=== PATIENT | female | born 1980 | race African-American/Black ===

== ENCOUNTER 2017-07-05 15:50 | Emergency (ER) | payer OTHER ==
[2017-07-05 15:56] VITALS: BP 134/86; PULSE 88; TEMP 99.3; BMI 29.0
--- NOTE | 2017-07-05 15:56 | PDOC ---
Rapid Medical Evaluation Time Seen by Provider: 07/05/17 15:52 Medical Evaluation: Allergies Allergy/AdvReac Type Severity Reaction Status Date / Time shellfish derived Allergy Verified 05/28/15 11:01 Penicillins AdvReac Verified 05/28/15 11:01 07/05/17 15:53 Toothache and L swollen cheek. Started yesterday and got worse overnight. Pt does not have a dentist. 11/23 pain. Exam: Swollen L cheek. No airway obstruction. AAOx3. Ambulatory. LMP two days ago. Orders: Nothing Pt. to proceed to main ED for further evaluation.
[2017-07-05] MEDS ORDERED: KETOROLAC TROMETHAMINE 60 MG/2 ML VIAL IM ONE (16:09)
[2017-07-05] MEDS ORDERED: CLINDAMYCIN 600MG PREMIX IVPB 600 MG/50 ML BAG IVPB ONE (16:11)
[2017-07-05] MEDS ORDERED: PANTOPRAZOLE SODIUM 40 MG VIAL IVPUSH ONE (16:13)
[2017-07-05] MEDS ORDERED: KETOROLAC TROMETHAMINE 30 MG/1 ML VIAL IVPUSH ONE (16:13)
--- NOTE | 2017-07-05 16:20 | PDOC ---
History of Present Illness - General Chief Complaint: Pain Stated Complaint: TOOTHACHE, HEADACHE, SWOLLEN FACE Time Seen by Provider: 07/05/17 15:52 - History of Present Illness Initial Comments: 37-year-old female presents for evaluation of facial swelling and toothache 1 day. She has past medical history significant for asthma and ALLERGY to penicillin. 07/05/17 16:14 Past History - Past Medical History Allergies/Adverse Reactions: Allergies Allergy/AdvReac Type Severity Reaction Status Date / Time shellfish derived Allergy Verified 07/05/17 15:53 Penicillins AdvReac Verified 07/05/17 15:53 Home Medications: Ambulatory Orders Clindamycin [Cleocin -] 300 mg PO TID #21 capsule 07/05/17 Asthma: Yes COPD: No HTN: Yes - Suicide/Smoking/Psychosocial Hx Smoking History: Current every day smoker Have you smoked in the past 12 months: Yes Number of Cigarettes Smoked Daily: 6 Information on smoking cessation initiated: Yes 'Breaking Loose' booklet given: 07/05/17 Hx Alcohol Use: No Drug/Substance Use Hx: No Substance Use Type: None Review of Systems - Review of Systems Comments:: GENERAL/CONSTITUTIONAL: No fever or chills. No weakness. No weight change. HEAD, EYES, EARS, NOSE AND THROAT: No change in vision. No ear pain or discharge. No sore throat. Left-sided facial swelling and toothache. CARDIOVASCULAR: No chest pain or shortness of breath. RESPIRATORY: No cough, wheezing, or hemoptysis. GASTROINTESTINAL: No nausea, vomiting, diarrhea or constipation. No rectal bleeding. GENITOURINARY: No dysuria, frequency, or change in urination. MUSCULOSKELETAL: No joint or muscle swelling or pain. No neck or back pain. SKIN AND BREASTS: No rash or easy bruising. NEUROLOGIC: No headache, vertigo, loss of consciousness, or loss of sensation. PSYCHIATRIC: No depression or anxiety. ENDOCRINE: No increased thirst. No abnormal weight change. HEMATOLOGIC/LYMPHATIC: No anemia, easy bleeding, or history of blood clots. ALLERGIC/IMMUNOLOGIC: No hives or skin allergy. No latex allergy. 07/05/17 16:15 *Physical Exam - Vital Signs Last Vital Signs Temp Pulse Resp BP Pulse Ox 99.3 F 88 18 134/86 100 07/05/17 15:54 07/05/17 15:54 07/05/17 15:54 07/05/17 15:54 07/05/17 15:54 - Physical Exam Comments: GENERAL: The patient is awake, alert, and fully oriented, in no acute distress. HEAD: Normal with no signs of trauma. EYES: Pupils equal, round and reactive to light, extraocular movements intact, sclera anicteric, conjunctiva clear. ENT: Ears normal, nares patent, oropharynx clear without exudates. Moist mucous membranes. There is left-sided facial swelling poor dentition. There is no palpable abscess or fluctuance. NECK: Normal range of motion, supple without lymphadenopathy, JVD, or masses. LUNGS: Breath sounds equal, clear to auscultation bilaterally. No wheezes, and no crackles. HEART: Regular rate and rhythm, normal S1 and S2 without murmur, rub or gallop. ABDOMEN: Soft, nontender, normoactive bowel sounds. No guarding, no rebound. No masses. EXTREMITIES: Normal range of motion, no edema. No clubbing or cyanosis. No cords, erythema, or tenderness. NEUROLOGICAL: Cranial nerves II through XII grossly intact. Normal speech, normal gait. PSYCH: Normal mood, normal affect. SKIN: Warm, Dry, normal turgor, no rashes or lesions noted. 07/05/17 16:16 Moderate Sedation - Procedure Monitoring Vital Signs: Vital Signs Temp Pulse Resp BP Pulse Ox 99.3 F 88 18 134/86 100 07/05/17 15:54 07/05/17 15:54 07/05/17 15:54 07/05/17 15:54 07/05/17 15:54 Medical Decision Making - Medical Decision Making 37-year-old female with dental abscess. There is nothing fluctuant on her examination which can be I&D in the emergency room. I have gotten her an appointment at dental care and she will go there after her dose of IV antibiotics and Toradol. I've also given her a dose of tonics IV for GI prophylaxis because of the Toradol. 07/05/17 16:18 *DC/Admit/Observation/Transfer Diagnosis at time of Disposition: Dental abscess - Discharge Dispostion Disposition: HOME Condition at time of disposition: Stable Decision to Admit order: No - Referrals - Patient Instructions Printed Discharge Instructions: Tooth Abscess Additional Instructions: I have gotten you an appointment with dental urgent care. Go to dental Urgentcare directly after discharge from the emergency room. In the meantime you 've already gotten a dose of IV antibiotics pain medication and medication to protect her stomach. Return to the emergency room if symptoms worsen or go unresolved. In the meantime go directly to dental Urgentcare after discharged today from the emergency room. I provide you with the address it is [address] [place] [address]. and [place] they are expecting you now your person there is Jessika. - Post Discharge Activity
== END 2017-07-05 17:52 | disposition home or self-care (01) ==
LOC: JERFT 15:50
PROC: 3E03329 Introduction of Other Anti-infective into Peripheral Vein, Percutaneous Approach (ICD-10-PCS; principal; 2017-07-05)
PROC: 3E0333Z Introduction of Anti-inflammatory into Peripheral Vein, Percutaneous Approach (ICD-10-PCS; 2017-07-05)
PROC: 3E033GC Introduction of Other Therapeutic Substance into Peripheral Vein, Percutaneous Approach (ICD-10-PCS; 2017-07-05)
DX: K04.7 Periapical abscess without sinus (principal); I10 Essential (primary) hypertension; J45.909 Unspecified asthma, uncomplicated; F17.210 Nicotine dependence, cigarettes, uncomplicated
CPT/HCPCS: 96365; 96375; 99281-25

== ENCOUNTER 2017-07-07 16:38 | Inpatient (IN) | payer OTHER ==
[2017-07-07 17:12] VITALS: BMI 29.3
[2017-07-07] MEDS ORDERED: CLINDAMYCIN 900 MG PREMIX IVPB 900 MG/50 ML BAG IVPB ONE (17:23)
--- NOTE | 2017-07-07 17:31 | PDOC ---
Attending Attestation - Resident Resident Name: Mau Guerrero - ED Attending Attestation I have performed the following: I have examined & evaluated the patient, The case was reviewed & discussed with the resident, I agree w/resident's findings & plan, Exceptions are as noted - HPI HPI: 07/07/17 17:17 37y F hx of asthma presents with complaint of L sided facial pain/tooth ache x 3 daysthat started while she was eating chicken and thinks she bit into a bone, pain started immedaiately and has gotten worse. pt endorses subjective fever and significant pain to the region. she went to the oral surgeon but left after getting a shot due to her pain. on exam pt has cavity and tenderness to touch on tooth #15, mild tendeness to R maxilla airway patent uvula midlien no voice changes ddx includes possible dental abcess will obtain blood work ct neck/maxilla 07/07/17 19:17 signed out to evening team to fu with results and ct & disposition the pt - Physicial Exam PE: 07/08/17 10:25 see above - Medical Decision Making 07/08/17 10:25 see above
--- NOTE | 2017-07-07 17:57 | PDOC ---
History of Present Illness - General Chief Complaint: Toothache Stated Complaint: ORAL INFECTION Time Seen by Provider: 07/07/17 17:02 History Source: Patient Exam Limitations: No Limitations - History of Present Illness Initial Comments: 07/07/17 17:56 Patient is a 37F with history of asthma here today complaining of left sided facial pain and swelling for the past three days. She states the pain started after eating a piece of food that caused irritation to an upper molar tooth. Endorses associated fevers, chills, nausea, and drooling. Denies shortness of breath and difficulty breathing. Denies chest pain. Patient was seen at oral surgeon's office where she left because the "dentist was hurting me." EMS gave patient 5 morphine and 4 zofran IM in the field. LMP two days ago. Past History - Past Medical History Allergies/Adverse Reactions: Allergies Allergy/AdvReac Type Severity Reaction Status Date / Time shellfish derived Allergy Verified 07/05/17 15:53 Penicillins AdvReac Verified 07/05/17 15:53 Home Medications: Ambulatory Orders Clindamycin [Cleocin -] 300 mg PO TID #21 capsule 07/05/17 Asthma: Yes COPD: No HTN: Yes - Suicide/Smoking/Psychosocial Hx Smoking History: Current every day smoker Have you smoked in the past 12 months: Yes Number of Cigarettes Smoked Daily: 10 Information on smoking cessation initiated: No 'Breaking Loose' booklet given: 07/05/17 Hx Alcohol Use: No Drug/Substance Use Hx: No Substance Use Type: None Review of Systems - Review of Systems Able to Perform ROS?: Yes Comments:: 07/07/17 18:01 GENERAL/CONSTITUTIONAL: Positive for fever and chills. No weakness. HEAD, EYES, EARS, NOSE AND THROAT: No change in vision. No sore throat. CARDIOVASCULAR: No chest pain or shortness of breath RESPIRATORY: No cough, wheezing, or hemoptysis. GASTROINTESTINAL: No nausea, vomiting, diarrhea or constipation. GENITOURINARY: No dysuria, frequency, or change in urination. MUSCULOSKELETAL: No joint or muscle swelling or pain. No neck or back pain. SKIN: No rash NEUROLOGIC: Positive for headache. Negative for vertigo, loss of consciousness, or change in strength/sensation. HEMATOLOGIC/LYMPHATIC: No anemia, easy bleeding, or history of blood clots. ALLERGIC/IMMUNOLOGIC: No hives or skin allergy. *Physical Exam - Vital Signs Last Vital Signs Temp Pulse Resp BP Pulse Ox 99.8 F H 92 H 22 123/63 100 07/07/17 17:09 07/07/17 17:09 07/07/17 17:09 07/07/17 17:09 07/07/17 17:09 - Physical Exam Comments: 07/07/17 18:02 GENERAL: Awake, alert, and fully oriented, tearful, anxious HEAD: No signs of trauma, normocephalic, atraumatic EYES: PERRLA, EOMI, sclera anicteric, conjunctiva clear ENT: Midline uvula, tender left sided side of face with surrounding erythema and swelling NECK: Normal ROM, supple, no lymphadenopathy, JVD, or masses LUNGS: No distress, speaks full sentences, clear to auscultation bilaterally HEART: Regular rate and rhythm, normal S1 and S2, no murmurs, rubs or gallops, peripheral pulses normal and equal bilaterally. ABDOMEN: Soft, nontender, normoactive bowel sounds. No guarding, no rebound. No masses EXTREMITIES: Normal inspection, Normal range of motion, no edema. No clubbing or cyanosis. NEUROLOGICAL: Cranial nerves II through XII grossly intact. Normal speech, normal gait, no focal sensorimotor deficits SKIN: Warm, Dry, normal turgor, no rashes or lesions noted. ED Treatment Course - RADIOLOGY Radiology Studies Ordered: Category Date Time Status SOFT TISSUE NECK CT WITH CONTR [CT] Stat CT Scan 07/07/17 17:15 Ordered Medical Decision Making - Medical Decision Making 07/07/17 18:03 Patient is 37F here today with left sided facial pain. Vital signs show borderline fever, otherwise normal. Exam shows impressive swelling and tenderness along maxilla. Concerned for possible abscess or deep space neck infection, do not think epiglottitis or russell's angina is likely given patient' s lack of voice changes and neck swelling. Will evaluate with cbc, cmp, blood cultures, ct scan. Will treat with tylenol and clindamycin for possible infection. 07/07/17 18:[address] Tse. *DC/Admit/Observation/Transfer Diagnosis at time of Disposition: Oral infection - Discharge Dispostion Condition at time of disposition: Stable - Referrals Referrals: Nahomi Luke MD [Primary Care Provider] - - Patient Instructions - Post Discharge Activity
[2017-07-07] MEDS ORDERED: ACETAMINOPHEN INJECTION 100 ML IVPB ONE (18:00)
[2017-07-07] MEDS ORDERED: CLINDAMYCIN 600MG PREMIX IVPB 600 MG/50 ML BAG IVPB ONE (18:00)
[2017-07-07] MEDS ORDERED: ACETAMINOPHEN 1000 MG/100 ML VIAL (NON FORMULARY) IVPB ONE (18:31)
[2017-07-07] MEDS ORDERED: CLINDAMYCIN PHOSPHATE 600 MG/4 ML VIAL ONE (18:32)
--- NOTE | 2017-07-07 19:07 | PDOC ---
*Physical Exam - Vital Signs Last Vital Signs Temp Pulse Resp BP Pulse Ox 99.8 F H 92 H 22 123/63 100 07/07/17 17:09 07/07/17 17:09 07/07/17 17:09 07/07/17 17:09 07/07/17 17:09 ED Treatment Course - LABORATORY CBC & Chemistry Diagram: 07/07/17 18:10 07/07/17 18:10 - Medications Given in the ED: ED Medications Discontinued Medications Generic Name Dose Route Start Last Admin Trade Name Adelia PRN Reason Stop Dose Admin Acetaminophen 1,000 mg 07/07/17 18:31 07/07/17 18:25 Ofirmev Injection - IVPB 07/07/17 18:32 1,000 mg ONCE ONE Administration Clindamycin Phosphate 900 mg in 50 mls @ 100 mls/hr 07/07/17 17:23 07/07/17 18:25 Cleocin 900 Mg Premix Ivpb - IVPB 07/07/17 17:52 100 mls/hr ONCE ONE Administration Protocol Medical Decision Making - Medical Decision Making 37 yo woman with hx of asthma presenting with L sided facial swelling secondary to suspected tooth abscess. Received labs, IV tylenol for pain control with pending facial CT to rule-out deep tissue abscess. If positive, will admit with ENT consulted and IV abx. If negative, will discharge on PO clindamycin. Sign out from Dr. Mau Guerrero 07/07/17 19:05 CT scan suggestive of L maxillary soft tissue cellulitis. WBC 16k. Pt with improvement in L facial swelling with IV medrol and cold pack. Received dose IV clinda 900mg at 5PM. Pt signed-out to Nicolasa Keane. Will admit to M/S obs. 07/08/17 02:22 *DC/Admit/Observation/Transfer Diagnosis at time of Disposition: Oral infection Cellulitis Qualifiers: Site of cellulitis: face Qualified Code(s): L03.211 - Cellulitis of face - Discharge Dispostion Condition at time of disposition: Stable Decision to Admit order: Yes - Referrals Referrals: Nahomi Luke MD [Primary Care Provider] - - Patient Instructions - Post Discharge Activity
[2017-07-07 19:38] LABS: HEMATOCRIT 35.3 % (32.4-45.2); HEMOGLOBIN 11.6 GM/dL (10.7-15.3); MCH 27.8 pg (25.7-33.7); MCHC 32.9 g/dl (32.0-36.0); MEAN CELL VOLUME 84.8 fl (80-96); MEAN PLT VOLUME 8.3 fl (7.5-11.1); PLATELET COUNT 275 K/MM3 (134-434); RBC 4.16 M/mm3 (3.60-5.2); RDW 14.4 % (11.6-15.6); WHITE BLOOD COUNT 16.2 K/mm3 (4.0-10.0)
[2017-07-07] MEDS ORDERED: methylPREDNISolone NA SUCC 125 MG/2 ML VIAL IVPB ONE (20:07)
[2017-07-07 20:09] LABS: INR 1.27 (0.82-1.09); PROTHROMBIN TIME (PATIENT) 14.3 SEC (9.7-13.0)
[2017-07-07] MEDS ORDERED: methylPREDNISolone NA SUCC 125 MG/2 ML VIAL ONE (20:14)
[2017-07-07 20:15] LABS: ALBUMIN 3.7 g/dl (3.4-5.0); ANION GAP 11 (8-16); BILIRUBIN,TOTAL 0.6 mg/dL (0.2-1.0); BLOOD UREA NITROGEN 7 mg/dL (7-18); CALCIUM 8.8 mg/dL (8.5-10.1); CHLORIDE 107 mmol/L (98-107); CO2 23 mmol/L (21-32); CREATININE 0.8 mg/dL (0.55-1.02); GLUCOSE,RANDOM 80 mg/dL (74-106); SGOT/AST 13 U/L (15-37); SGPT/ALT 9 U/L (12-78); SODIUM 141 mmol/L (136-145); TOT PROT 7.7 g/dl (6.4-8.2)
[2017-07-07 20:16] LABS: ALK PHOS 76 U/L (45-117)
[2017-07-07] MEDS ORDERED: morphine CARPU-JECT 2 MG/1 ML DISP.SYRIN IVPUSH ONE (20:22)
[2017-07-07] MEDS ORDERED: ONDANSETRON 4 MG/2 ML VIAL IVPUSH STA (20:22)
[2017-07-07] MEDS ORDERED: MORPHINE SULFATE 10 MG/1 ML *VIAL ONE (20:25)
[2017-07-07] MEDS ORDERED: ONDANSETRON 4 MG/2 ML VIAL ONE (20:26)
[2017-07-07 20:31] LABS: POTASSIUM 2.8 mmol/L (3.5-5.1)
[2017-07-07] MEDS ORDERED: POTASSIUM CHLORIDE ORAL LIQUID 20 MEQ/15 ML PO ONE (20:32)
[2017-07-07] MEDS ORDERED: POTASSIUM CHLORIDE ORAL LIQUID 20 MEQ/15 ML ONE (22:05)
[2017-07-07] MEDS ORDERED: KCL 10 MEQ IVPB 10 MEQ/100 ML INFUS.BAG IVPB ONE ×2 (22:06→23:22)
[2017-07-07] MEDS: KCL 10 MEQ IVPB 10 MEQ/100 ML INFUS.BAG IVPB SCH ×2 (22:23→22:45)
[2017-07-08] MEDS: KCL 10 MEQ IVPB 10 MEQ/100 ML INFUS.BAG IVPB SCH (00:59)
[2017-07-08] MEDS ORDERED: MECLIZINE HCL 25 MG TABLET (FP) PO ONE (01:51)
[2017-07-08] MEDS ORDERED: MECLIZINE HCL 25 MG TABLET (FP) ONE (02:34)
[2017-07-08] MEDS ORDERED: CLINDAMYCIN 600MG PREMIX IVPB 600 MG/50 ML BAG IVPB ONE ×2 (02:50→04:02)
[2017-07-08] MEDS ORDERED: ALBUTEROL SO4 0.083% IH SOL 2.5 MG/3 ML VIAL.NEB. NEB PRN (03:29)
[2017-07-08] MEDS ORDERED: ACETAMINOPHEN 325 MG TABLET (FP) PO PRN (03:29)
--- NOTE | 2017-07-08 04:51 | HP ---
CHIEF COMPLAINT: facial swelling PCP: Dr. Nahomi Luke HISTORY OF PRESENT ILLNESS: 37yo woman with PMH of asthma (well controlled) who presents to ED with L sided tooth and facial pain that started 3 days ago after biting into a piece of chicken bone. Denies any prior tooth/oral symptoms prior to that event. No puncture or laceration of oral mucosa noted. No facial insect bites. She states that since Tuesday night she has had progressing facial swelling and pain. She went to oral surgeon earlier today, but left after receiving Novocaine injection due to pain. Endorses subjective fever and chills. Denies any difficulty or pain with swallowing or talking. Had some pain with medial L eye movement, but denies any changes in vision. Denies any voice changes. Currently states that swelling and pain has improved. ED course was notable for: (1) VS: T 98.8, HR 92, BP 123/63, RR 22, pSaO2 100% on RA (2) CT neck/maxilla: facial cellutitis, no abscess detected (3) Received 1x SoluMedrol 125mg IV and Clinda 900mg IV, Clinda 600mg IV Recent Travel: none PAST MEDICAL HISTORY: asthma HTN PAST SURGICAL HISTORY: no prior oral surgeries Social History: Smoking: ~10 cig/day, 10pack year history Alcohol: none Drugs: none Family History: non-contributory Allergies shellfish derived Allergy (Verified 07/05/17 15:53) -> anaphylaxis Penicillins Adverse Reaction (Verified 07/05/17 15:53) --> hives HOME MEDICATIONS: Home Medications Medication Instructions Recorded Clindamycin [Cleocin -] 300 mg PO TID #21 capsule 07/05/17 REVIEW OF SYSTEMS CONSTITUTIONAL: +fever, chills Absent: diaphoresis, generalized weakness, malaise, loss of appetite, weight change HEENT: Absent: rhinorrhea, nasal congestion, throat pain, throat swelling, difficulty swallowing, mouth swelling, ear pain, eye pain, visual changes CARDIOVASCULAR: Absent: chest pain, syncope, palpitations, irregular heart rate, lightheadedness , peripheral edema RESPIRATORY: Absent: cough, shortness of breath, dyspnea with exertion, orthopnea, wheezing, stridor, hemoptysis GASTROINTESTINAL: Absent: abdominal pain, abdominal distension, nausea, vomiting, diarrhea, constipation, melena, hematochezia GENITOURINARY: Absent: dysuria, frequency, urgency, hesitancy, hematuria, flank pain, genital pain MUSCULOSKELETAL: Absent: myalgia, arthralgia, joint swelling, back pain, neck pain SKIN: Absent: rash, itching, pallor HEMATOLOGIC/IMMUNOLOGIC: Absent: easy bleeding, easy bruising, lymphadenopathy, frequent infections ENDOCRINE: Absent: unexplained weight gain, unexplained weight loss, heat intolerance, cold intolerance NEUROLOGIC: Absent: headache, focal weakness or paresthesias, dizziness, unsteady gait, seizure, mental status changes, bladder or bowel incontinence PSYCHIATRIC: Absent: anxiety, depression, suicidal or homicidal ideation, hallucinations. PHYSICAL EXAMINATION Vital Signs - 24 hr 07/07/17 17:09 Temperature 99.8 F H Pulse Rate 92 H Respiratory 22 Rate Blood Pressure 123/63 O2 Sat by Pulse 100 Oximetry (%) GENERAL: aaox3, HEENT: upper L facial swelling with partial occlusion of L eye without erythema , + ttp L 2nd molar, sclera anicteric, conjunctiva clear, uvula midline, no pharyngeal erythema, mmm NECK: supple, +L submandibular LAD LUNGS: CTAB HEART: rrr, normal s1/s2 ABDOMEN: soft, protuberant, NTND UPPER EXTREMITIES: 2+ radial pulses, wwp, no edema LOWER EXTREMITIES: 2+ DP pulses, wwp, edema NEUROLOGICAL: Cranial nerves II-XII intact. Normal speech. PSYCHIATRIC: Cooperative. Good eye contact. Appropriate mood and affect. SKIN: no rashes, bites or lesions noted on face CBC, BMP 07/07/17 18:10 07/07/17 18:10 CT Face w/o contrast (Preliminary Read): Moderate swelling L mandibular and maxillary soft tissue, possibly cellulitis. Soft tissue thickening particularly over L anterior maxillary wall extending to L nasal bone and along L lateral maxillary sinus wall, which could represent phlegmon. EKG: NSR, rate 67, normal axis and intervals, no acute ischemic ST/T wave changes, QTc 450 ASSESSMENT/PLAN: 37yo woman with PMH of asthma who presents with L upper facial swelling and L 2nd molar tooth pain x 3days and found to have L facial cellulitis of likely odontogenic etiology. #L facial cellulitis, CT Face non-contrast: possible phlegmon, but no discrete abscess noted -continue with Clindamycin 600mg IVP Q8H -f/u blood cultures -f/u final CT reading -Trend WBC/fever curve -Tylenol PRN for pain or fever -dental referral on discharge #hypokalemia, 2.8 -s/p repletion KCl 30mEq + KCl 40 mEq PO -Repeat CMP in AM -Check Mg #asthma, well controlled, no exacerbation -c/w home Ventolin PRN #FEN PO intake hypoK repleted Regular diet #PPX DVT - early ambulation, SCDs #DISPO: Obs m/s FULL code d/w Dr. Moses Bellamy MD PGY1 - Internal Medicine, Night Maintenance Analyst Visit type - Emergency Visit Emergency Visit: Yes ED Registration Date: 07/08/17 Care time: The patient presented to the Emergency Department on the above date and was hospitalized for further evaluation of their emergent condition. - New Patient This patient is new to me today: Yes Date on this admission: 07/08/17 - Critical Care Critical Care patient: No Hospitalist Screening - Colonoscopy Questionnaire Colonoscopy Questionnaire: Colonoscopy Questionnaire - Patient: 50 - 75 years old and never had a screening colonoscopy: No History of colon or rectal polyps, or CA: Unknown History of IBD, Crohn's disease or UC: Unknown History of abdominal radiation therapy as a child: Unknown - Relative: 1 with colon or rectal CA, or polyps at age 60 or younger: Unknown Colon or rectal CA diagnosed at age 45 or younger: Unknown Multiple relatives with colon or rectal CA: Unknown - Outcome: Screening Result: Negative Screen
--- NOTE | 2017-07-08 06:13 | PN ---
Teaching Attending Note Name of Resident: Amanda Bellamy ATTENDING PHYSICIAN STATEMENT I saw and evaluated the patient. Chart, data, imaging reviewed. I reviewed the resident's note and discussed the case with the resident. I agree with the resident's findings and plan as documented. SUBJECTIVE: 37yo woman with PMH of asthma (well controlled) who presents to ED with L sided tooth and facial pain that started on tuesday. Patient thought that this started after eating some chicken. Denied any trauma to her face. No problems with speech or swallowing. Denied any fevers or chills. OBJECTIVE: Last Vital Signs Temp Pulse Resp BP Pulse Ox 98.3 F 68 18 108/62 99 07/08/17 05:26 07/08/17 05:26 07/08/17 05:26 07/08/17 05:07/08/17 05:26 general- nad, aaox3 heent - left facial swelling and left sided maxillary and frontal sinus tenderness, no scleral injection neck -supple cv-s1+s2+rrr chest - cta b/l abdomen- soft, nt, bs+ ext -no pedal edema Abnormal Lab Results 07/07/17 07/07/17 07/07/17 18:10 18:10 18:10 WBC 16.2 H D PT with INR 14.30 H INR 1.27 H Potassium 2.8 L* AST 13 L [address] of face C-, Moderate swelling L mandibular and maxillary soft tissue, possibly cellulitis. Soft tissue thickening particularly over L anterior maxillary wall extending to L nasal bone and along L lateral maxillary sinus wall, which could represent phlegmon. Assessment and Plan #37yo woman with left facial cellulitis with left maxillary and frontal sinusitis. Do not suspect allergic reaction as swelling is only unilateral. Partial improvement in swelling after steroids. Penicillin allergy+ -admit to med/surg -clindamycin 600mg IV q8hrs -blood cultures x2 -dental/OMS evaluation -no steroids at this time #Hypokalemia -uncertain etiology -replace K -EKG -repeat BMP DVT ppx -heparin sc
[2017-07-08 08:20] LABS: HEMATOCRIT 33.3 % (32.4-45.2); LYMPH % 2.7 % (8-40); MCH 27.9 pg (25.7-33.7); MCHC 32.9 g/dl (32.0-36.0); MEAN CELL VOLUME 84.8 fl (80-96); MEAN PLT VOLUME 8.2 fl (7.5-11.1); MONO % 0.4 % (3.8-10.2); NEUT % 96.9 % (42.8-82.8); PLATELET COUNT 239 K/MM3 (134-434); RBC 3.93 M/mm3 (3.60-5.2); RDW 14.4 % (11.6-15.6); WHITE BLOOD COUNT 22.6 K/mm3 (4.0-10.0)
[2017-07-08 08:30] LABS: CHLORIDE 109 mmol/L (98-107); POTASSIUM 3.8 mmol/L (3.5-5.1); SODIUM 140 mmol/L (136-145)
[2017-07-08 08:36] VITALS: PULSE 73
[2017-07-08 08:57] LABS: ALBUMIN 3.3 g/dl (3.4-5.0); ALK PHOS 68 U/L (45-117); ANION GAP 8 (8-16); BILIRUBIN,TOTAL 0.4 mg/dL (0.2-1.0); BLOOD UREA NITROGEN 8 mg/dL (7-18); CALCIUM 8.3 mg/dL (8.5-10.1); CO2 23 mmol/L (21-32); CREATININE 0.8 mg/dL (0.55-1.02); GLUCOSE,RANDOM 113 mg/dL (74-106); MAGNESIUM 2.3 mg/dL (1.8-2.4); PHOSPHOROUS 2.3 mg/dL (2.5-4.9); SGOT/AST 11 U/L (15-37); SGPT/ALT 11 U/L (12-78); TOT PROT 7.3 g/dl (6.4-8.2)
[2017-07-08 09:12] LABS: PLATELET ESTIMATE NORMAL
[2017-07-08] MEDS: CLINDAMYCIN 600MG PREMIX IVPB 600 MG/50 ML BAG IVPB SCH ×2 (09:39→17:33)
[2017-07-08] MEDS ORDERED: methylPREDNISolone NA SUCC 40 MG/1 ML VIAL IVPUSH ONE (10:00)
[2017-07-08] MEDS ORDERED: PNEUMOC 13-VAL CONJ-DIP CRM/PF 0.5 ML DISP.SYRIN IM ONE (10:00)
--- NOTE | 2017-07-08 10:42 | EKG ---
Test Reason : Blood Pressure : / mmHG Vent. Rate : 067 BPM Atrial Rate : 067 BPM P-R Int : 150 ms QRS Dur : 086 ms QT Int : 426 ms P-R-T Axes : 061 075 061 degrees QTc Int : 450 ms NORMAL SINUS RHYTHM NORMAL ECG WHEN COMPARED WITH ECG OF 27-SEP-2014 11:40, NO SIGNIFICANT CHANGE WAS FOUND Confirmed by JOSE BENJAMIN MD ([id number]) on 07/08/2017 10:41:54 AM Referred By: Confirmed By:JOSE BENJAMIN MD
--- NOTE | 2017-07-08 12:24 | CON.ID ---
Consult Consult Specialty:: infectious diseases Referred by:: Reason for Consultation:: left facial cellulitits - History of Present Illness Chief Complaint: left sided facial swelling History of Present Illness: 37yo woman with PMH of asthma admitted with L sided tooth and facial pain that started 3 days ago after biting into a piece of chicken bone. Denies any prior tooth/oral symptoms prior to that event. She mentions that after that the facial swelling was a lot and she was in a lot of pain according to her this pain and swelling that she has now is not even half of what she had. patient also had fever and chills associated with the episode. . She went to oral surgeon , but left after receiving Novocaine injection and according to her he did not do enough to control her pain . Denies any difficulty or pain with swallowing or talking. Had some pain with medial L eye movement, now she does not have any issues with the eye and says that the swelling ahs decreased currently the pain is much better - History Source History Provided By: Patient Limitations to Obtaining History: No Limitations - Alcohol/Substance Use Hx Alcohol Use: No - Smoking History Smoking history: Current every day smoker Have you smoked in the past 12 months: Yes Aproximately how many cigarettes per day: 10 Home Medications - Allergies Allergies/Adverse Reactions: Allergies Allergy/AdvReac Type Severity Reaction Status Date / Time shellfish derived Allergy Verified 07/05/17 15:53 Penicillins AdvReac Verified 07/05/17 15:53 - Home Medications Home Medications: Ambulatory Orders Clindamycin [Cleocin -] 300 mg PO TID #21 capsule 07/05/17 Review of Systems - Review of Systems Constitutional: reports: Chills, Fever Eyes: reports: No Symptoms HENT: reports: Ocular Prosthesis, Other (swelling left side of the face) Cardiovascular: reports: No Symptoms Respiratory: reports: No Symptoms Gastrointestinal: reports: No Symptoms Genitourinary: reports: No Symptoms Musculoskeletal: reports: No Symptoms Integumentary: reports: No Symptoms Neurological: reports: No Symptoms Endocrine: reports: No Symptoms Hematology/Lymphatic: reports: No Symptoms Psychiatric: reports: No Symptoms Physical Exam Vital Signs: Vital Signs Temperature 98.7 F 07/08/17 09:00 Pulse Rate 73 07/08/17 09:00 Respiratory Rate 20 07/08/17 11:23 Blood Pressure 134/78 07/08/17 09:00 O2 Sat by Pulse Oximetry (%) 99 07/08/17 11:23 Constitutional: Yes: Well Nourished, Calm, Mild Distress Eyes: Yes: Conjunctiva Clear HENT: Yes: Atraumatic, Other (swelling left side of the face and cellulittis left side of the face) Neck: Yes: Supple, Trachea Midline Cardiovascular: Yes: Regular Rate and Rhythm Respiratory: Yes: Regular, CTA Bilaterally Gastrointestinal: Yes: Normal Bowel Sounds, Soft Musculoskeletal: Yes: WNL Extremities: Yes: WNL Neurological: Yes: Alert, Oriented Psychiatric: Yes: Alert, Oriented Labs: CBC, BMP 07/08/17 07:45 07/08/17 07:45 Imaging - Results Cat Scan: Report Reviewed, Image Reviewed Assessment/Plan patient coming with left sided facial cellulittis and left orbit swelling was started on clind inspite of which the wbc has increased patient clinically looking stable looking at the ct imaging there is some worry if there is a collection her swelling has improved patient infection probably coming from the tooth cellulitis of left side of face swelling of left face and orbit probable tooth abscess fever leukocytosis plan continue clinda i have added ertapenam as patient has some allergy to pcn monitor swelling might have to repeat a ct scan in couple of days if the swelling does not resolve or the wbc does not trend down watch wbc very carefully
[2017-07-08] MEDS ORDERED: ERTAPENEM SODIUM 1 GM in SODIUM CHLORIDE 100 ML IVPB SCH (13:00)
[2017-07-08] MEDS ORDERED: ERTAPENEM SODIUM 1 GM in SODIUM CHLORIDE 50 ML IVPB SCH (13:00)
[2017-07-08 13:43] VITALS: BP 117/59; TEMP 98.6
--- NOTE | 2017-07-08 15:24 | PN ---
Teaching Attending Note Name of Resident: Shahab Fu ATTENDING PHYSICIAN STATEMENT I saw and evaluated the patient. I reviewed the resident's note and discussed the case with the resident. I agree with the resident's findings and plan as documented with exceptions below. SUBJECTIVE: Patient seen and examined, still with left tooth pain with facial swelling and some pain with eye movements and photophobia in left eye. No new worsening, fevers, chills or trouble breathing. OBJECTIVE: Vital Signs Period Temp Pulse Resp BP Sys/Brunson Pulse Ox Last 24 Hr 98.3 F-99.8 F 68-92 18-22 108-134/59-78 99-100 Intake & Output 07/05/17 07/06/17 07/07/17 07/08/17 23:59 23:59 23:59 23:59 Weight 182 lb General: sitting in bed, no acute distress HEENT: left facial and tanisha-orbital swelling, PERRL, photophobia in left eye, pain with medial eye movements but no limitation in ROM, tenderness left maxially and upper mouth in the region of molars Chest: CTAB, no rales or wheezing, no stridor Active Medications Generic Name Dose Route Start Last Admin Trade Name Freq PRN Reason Stop Dose Admin Acetaminophen 650 mg 07/08/17 03:29 Tylenol - PO Q4H PRN PAIN LEVEL 1-5 Albuterol Sulfate 1 amp 07/08/17 03:29 Ventolin 0.083% Nebulizer Soln - NEB Q6H PRN SHORT OF BREATH/WHEEZING Clindamycin Phosphate 600 mg in 50 mls @ 100 mls/hr 07/08/17 10:00 07/08/17 09:39 Cleocin 600 Mg Premix Ivpb - IVPB 100 mls/hr Q8H-IV SHERI Administration Protocol Ertapenem 1 gm/ Sodium 100 mls @ 100 mls/hr 07/08/17 13:00 Chloride IVPB DAILY SHERI Protocol Laboratory Results - last 24 hr 07/07/17 07/07/17 07/07/17 18:10 18:10 18:10 WBC 16.2 H D RBC 4.16 Hgb 11.6 Hct 35.3 MCV 84.8 MCH 27.8 MCHC 32.9 RDW 14.4 Plt Count 275 D MPV 8.3 D Neutrophils % Neutrophils % (Manual) Band Neutrophils % Lymphocytes % Lymphocytes % (Manual) Monocytes % Monocytes % (Manual) Eosinophils % Eosinophils % (Manual) Basophils % Basophils % (Manual) Myelocytes % (Man) Promyelocytes % (Man) Blast Cells % (Manual) Nucleated RBC % Metamyelocytes Platelet Estimate PT with INR INR Sodium 141 Potassium 2.8 L* Chloride 107 Carbon Dioxide 23 Anion Gap 11 BUN 7 Creatinine 0.8 Creat Clearance w eGFR > 60 Random Glucose 80 Calcium 8.8 Phosphorus Magnesium Total Bilirubin 0.6 D AST 13 L ALT 9 L Alkaline Phosphatase 76 Total Protein 7.7 Albumin 3.7 Serum , Qual Negative 07/07/17 07/08/17 07/08/17 18:10 07:45 07:45 WBC 22.6 H D RBC 3.93 Hgb 11.0 Hct 33.3 MCV 84.8 MCH 27.9 MCHC 32.9 RDW 14.4 Plt Count 239 MPV 8.2 Neutrophils % 96.9 H D Neutrophils % (Manual) 93.9 H Band Neutrophils % 3.1 Lymphocytes % 2.7 L D Lymphocytes % (Manual) 3.0 L Monocytes % 0.4 L D Monocytes % (Manual) 0 L Eosinophils % 0.0 D Eosinophils % (Manual) 0.0 Basophils % 0.0 Basophils % (Manual) 0.0 Myelocytes % (Man) 0 Promyelocytes % (Man) 0 Blast Cells % (Manual) 0 Nucleated RBC % 0 Metamyelocytes 0 Platelet Estimate Normal PT with INR 14.30 H INR 1.27 H Sodium Cancelled Potassium Cancelled Chloride Cancelled Carbon Dioxide Cancelled Anion Gap Cancelled BUN Cancelled Creatinine Cancelled Creat Clearance w eGFR Random Glucose Cancelled Calcium Cancelled Phosphorus Cancelled Magnesium Cancelled Total Bilirubin AST ALT Alkaline Phosphatase Total Protein Albumin Serum , Qual 07/08/17 07:45 WBC RBC Hgb Hct MCV MCH MCHC RDW Plt Count MPV Neutrophils % Neutrophils % (Manual) Band Neutrophils % Lymphocytes % Lymphocytes % (Manual) Monocytes % Monocytes % (Manual) Eosinophils % Eosinophils % (Manual) Basophils % Basophils % (Manual) Myelocytes % (Man) Promyelocytes % (Man) Blast Cells % (Manual) Nucleated RBC % Metamyelocytes Platelet Estimate PT with INR INR Sodium 140 Potassium 3.8 Chloride 109 H Carbon Dioxide 23 Anion Gap 8 BUN 8 Creatinine 0.8 Creat Clearance w eGFR > 60 Random Glucose 113 H Calcium 8.3 L Phosphorus 2.3 L Magnesium 2.3 Total Bilirubin 0.4 D AST 11 L ALT 11 L Alkaline Phosphatase 68 Total Protein 7.3 Albumin 3.3 L Serum , Qual CT face results noted CT orbit results noted. ASSESSMENT AND PLAN: 37 yof with likely left dental abscess with facial/preseptal cellulitis. -Sepsis secondary to likely dental abscess with facial/preseptal cellulitis Plan: Clindamycin. ID consulted noted. Add ertapenem, given PCN allergy and worsening WBC ?Leucocoytosis with component of steroid induced margination. CT orbit results noted. Opthalmology consulted, recommend treatment for primary infection, will continue to monitor and follow recs. [id number] as need tooth extraction with likely drainage of abscess. Plan discussed with patient in detail, all questions answered. D/c to [facility] when bed available.
--- NOTE | 2017-07-08 15:44 | DS ---
Physical Exam: SUBJECTIVE: Patient seen and examined at bedside. Pt complains of pain of the left cheek and periorbital area. No other complaints. OBJECTIVE: Vital Signs Period Temp Pulse Resp BP Sys/Brunson Pulse Ox Last 24 Hr 98.3 F-99.8 F 68-92 18-22 108-134/59-78 99-100 PHYSICAL EXAM GENERAL: The patient is awake, alert, and fully oriented, in no acute distress. HEAD: Normal with no signs of trauma. EYES: PERRL (Left photophobia), extraocular movements intact (though there is L eye pain on rightward gaze), sclera anicteric, conjunctiva clear. ENT: Ears normal, nares patent, oropharynx clear without exudates, moist mucous membranes. NECK: Trachea midline, full range of motion, supple. LUNGS: Breath sounds equal, clear to auscultation bilaterally, no wheezes, no crackles, no accessory muscle use. HEART: Regular rate and rhythm, S1, S2 without murmur, rub or gallop. ABDOMEN: Soft, nontender, nondistended, normoactive bowel sounds, no guarding, no rebound, no hepatosplenomegaly, no masses. EXTREMITIES: 2+ pulses, warm, well-perfused, no edema. NEUROLOGICAL: Cranial nerves II through XII grossly intact. Normal speech, gait not observed. PSYCH: Normal mood, normal affect. SKIN: Warm, dry, normal turgor, no rashes or lesions noted. LABS Laboratory Results - last 24 hr 07/07/17 07/07/17 07/07/17 18:10 18:10 18:10 WBC 16.2 H D RBC 4.16 Hgb 11.6 Hct 35.3 MCV 84.8 MCH 27.8 MCHC 32.9 RDW 14.4 Plt Count 275 D MPV 8.3 D Neutrophils % Neutrophils % (Manual) Band Neutrophils % Lymphocytes % Lymphocytes % (Manual) Monocytes % Monocytes % (Manual) Eosinophils % Eosinophils % (Manual) Basophils % Basophils % (Manual) Myelocytes % (Man) Promyelocytes % (Man) Blast Cells % (Manual) Nucleated RBC % Metamyelocytes Platelet Estimate PT with INR INR Sodium 141 Potassium 2.8 L* Chloride 107 Carbon Dioxide 23 Anion Gap 11 BUN 7 Creatinine 0.8 Creat Clearance w eGFR > 60 Random Glucose 80 Calcium 8.8 Phosphorus Magnesium Total Bilirubin 0.6 D AST 13 L ALT 9 L Alkaline Phosphatase 76 Total Protein 7.7 Albumin 3.7 Serum , Qual Negative 07/07/17 07/08/17 07/08/17 18:10 07:45 07:45 WBC 22.6 H D RBC 3.93 Hgb 11.0 Hct 33.3 MCV 84.8 MCH 27.9 MCHC 32.9 RDW 14.4 Plt Count 239 MPV 8.2 Neutrophils % 96.9 H D Neutrophils % (Manual) 93.9 H Band Neutrophils % 3.1 Lymphocytes % 2.7 L D Lymphocytes % (Manual) 3.0 L Monocytes % 0.4 L D Monocytes % (Manual) 0 L Eosinophils % 0.0 D Eosinophils % (Manual) 0.0 Basophils % 0.0 Basophils % (Manual) 0.0 Myelocytes % (Man) 0 Promyelocytes % (Man) 0 Blast Cells % (Manual) 0 Nucleated RBC % 0 Metamyelocytes 0 Platelet Estimate Normal PT with INR 14.30 H INR 1.27 H Sodium Cancelled Potassium Cancelled Chloride Cancelled Carbon Dioxide Cancelled Anion Gap Cancelled BUN Cancelled Creatinine Cancelled Creat Clearance w eGFR Random Glucose Cancelled Calcium Cancelled Phosphorus Cancelled Magnesium Cancelled Total Bilirubin AST ALT Alkaline Phosphatase Total Protein Albumin Serum , Qual 07/08/17 07:45 WBC RBC Hgb Hct MCV MCH MCHC RDW Plt Count MPV Neutrophils % Neutrophils % (Manual) Band Neutrophils % Lymphocytes % Lymphocytes % (Manual) Monocytes % Monocytes % (Manual) Eosinophils % Eosinophils % (Manual) Basophils % Basophils % (Manual) Myelocytes % (Man) Promyelocytes % (Man) Blast Cells % (Manual) Nucleated RBC % Metamyelocytes Platelet Estimate PT with INR INR Sodium 140 Potassium 3.8 Chloride 109 H Carbon Dioxide 23 Anion Gap 8 BUN 8 Creatinine 0.8 Creat Clearance w eGFR > 60 Random Glucose 113 H Calcium 8.3 L Phosphorus 2.3 L Magnesium 2.3 Total Bilirubin 0.4 D AST 11 L ALT 11 L Alkaline Phosphatase 68 Total Protein 7.3 Albumin 3.3 L Serum , Qual HOSPITAL COURSE: Date of Admission:07/08/17 Date of Discharge: 07/08/17 37yo woman with PMH of asthma who presents with L upper facial swelling and L 2nd molar tooth pain x 3days and found to have L facial cellulitis of likely odontogenic etiology. Pt was admitted with L facial cellulitis. She had a CT Face non-contrast, which showed possible phlegmon, but no discrete abscess noted. Pt had Orbital CT, which showed no post-septal orbital inflammation. 1.7x1x1 cm density possibly representing abscess. She was started on Clindamycin. Pt had blood cultures drawn. psychological anthropologist ophthomolgy (Dr. Yesenia Hernandez) was called. It was felt that the pt's problem was not ophthalmologic in nature and would be best treated by ID and OMFS. He stated he would see the patient today. Pt was transferred before Dr. Hernandez was able to see her. Pt had leukocytosis WBC and initial temp of 99.8. Pain was controlled. Pt was found to have hypokalemia on intial assessment. Pt has asthma, which has been well controlled. Pt not in exacerbation. Pt is stable for d/c to [facility]. Accepting physician: Dr. Marsha Dawson Minutes to complete discharge: 30 Discharge Summary Reason For Visit: CELLULITIS INFECTION OF MOUTH (ED OBS) Current Active Problems Cellulitis (Acute) Oral infection (Acute) Condition: Stable - Instructions Diet, Activity, Other Instructions: You are being transferred to [facility]. You have cellulitis of the face which is likely secondary to a tooth abscess. You will be seen by an yumiko maxillary facial surgeon there. Once you leave the hospital you need to make sure you follow up with your primary care doctor. You will also need to follow up with the surgeon and an ophthomologist. You are currentlly placed on antibiotics Clindamycin and ertapenem given your penicillin allergy Make sure you take all your medications as directed. Referrals: Nahomi Luke MD [Primary Care Provider] - 1 Week Disposition: TRANSFER ACUTE CARE/OTHER HOSP - Home Medications Comprehensive Discharge Medication List: Ambulatory Orders Clindamycin [Cleocin -] 300 mg PO TID #21 capsule 07/05/17 Acetaminophen [Tylenol .Regular Strength -] 650 mg PO Q4H PRN tablet 07/08/17 Albuterol 0.083% Nebulizer Shaye [Ventolin 0.083% Nebulizer Soln -] 1 amp NEB Q6H PRN amp 07/08/17 Ertapenem Sodium [Invanz -] 1 gm IVPB DAILY vial 07/08/17 Sodium Chloride [Normal Saline -] 50 ml IVPB DAILY ivpb 07/08/17 This patient is new to me today: Yes Date on this admission: 07/08/17 Emergency Visit: Yes ED Registration Date: 07/08/17 Care time: The patient presented to the Emergency Department on the above date and was hospitalized for further evaluation of their emergent condition. Critical Care patient: No - Discharge Referral Referred to [facility] No
[2017-07-08] MEDS ORDERED: DEXTROSE 5%-NORMAL SALINE 1,000 ML IV SCH (15:45)
== END 2017-07-08 18:37 | disposition short-term general hospital (02) | DRG 383 ==
LOC: JER 16:38 → JERBED 07-08 02:25 → UNDOADMOB 07-08 02:39 → J7W 07-08 06:10 → OBSVTOIN 07-08 08:32
PROVIDERS: ADMIT Internal Medicine; ATTEND Hospitalist
DX: L03.211 Cellulitis of face (principal); J45.909 Unspecified asthma, uncomplicated; E87.6 Hypokalemia; D72.829 Elevated white blood cell count, unspecified; K04.7 Periapical abscess without sinus; F17.210 Nicotine dependence, cigarettes, uncomplicated; R50.9 Fever, unspecified
CPT/HCPCS: 36415; 70480-TC; 70486-TC; 80053; 83735; 84100; 84703; 85025; 85027; 85610; 87040; 90670; 93005; 93010; 99284-25; G0378; J0131

== ENCOUNTER 2023-03-13 13:51 | Emergency (ER) | payer OTHER ==
[2023-03-13 14:22] VITALS: PULSE 88; BMI 75.9
[2023-03-13] MEDS ORDERED: METOCLOPRAMIDE HCL INJECTION 10 MG/2 ML VIAL IVPB ONE (14:27)
[2023-03-13] MEDS ORDERED: ACETAMINOPHEN 1000 MG/100 ML BAG IVPB ONE (14:27)
[2023-03-13] MEDS ORDERED: LACTATED RINGERS SOLUTION 1000 ML INFUS.BAG IV ONE (14:29)
[2023-03-13] MEDS ORDERED: ACETAMINOPHEN INJECTION 100 ML IVPB ONE (14:55)
[2023-03-13] MEDS ORDERED: METOCLOPRAMIDE HCL INJECTION 10 MG/2 ML VIAL ONE (14:55)
[2023-03-13] MEDS ORDERED: ALBUTEROL SO4 HFA INHALER IH PRN (15:23)
[2023-03-13] MEDS ORDERED: DEXAMETHASONE SOD PHOSPHATE 10 MG/1 ML VIAL IVPUSH ONE (15:24)
[2023-03-13] MEDS ORDERED: ALBUTEROL SO4 HFA INHALER IH ONE (15:25)
[2023-03-13] MEDS ORDERED: DEXAMETHASONE SOD PHOSPHATE 10 MG/1 ML VIAL ONE (15:37)
[2023-03-13 15:40] LABS: HEMATOCRIT 43.3 % (32.4-45.2); HEMOGLOBIN 14.8 GM/dL (10.7-15.3); MCH 29.1 pg (25.7-33.7); MCHC 34.3 g/dl (32.0-36.0); MEAN CELL VOLUME 84.8 fl (80-96); MEAN PLT VOLUME 8.4 fl (7.5-11.1); PLATELET COUNT 180 10^3/uL (134-434); RDW 13.6 % (11.6-15.6); WHITE BLOOD COUNT 4.8 K/mm3 (4.0-10.0)
[2023-03-13 15:56] LABS: POTASSIUM 3.6 mmol/L (3.5-5.1)
[2023-03-13 16:03] LABS: BILIRUBIN,TOTAL 0.3 mg/dL (0.2-1); TOT PROT 7.9 g/dl (6.4-8.2)
[2023-03-13] MEDS ORDERED: guaiFENesin/CODEINE 10 ML UNIT-DOSE CUPS PO ONE (17:18)
[2023-03-13] MEDS ORDERED: guaiFENesin/CODEINE 5 ML UNIT-DOSE CUPS PO ONE ×2 (17:21→17:53)
[2023-03-13 18:23] VITALS: BP 121/81; RESP 16; TEMP 98.5
== END 2023-03-13 18:27 | disposition home or self-care (01) ==
LOC: JER 13:51
PROC: 3E033NZ Introduction of Analgesics, Hypnotics, Sedatives into Peripheral Vein, Percutaneous Approach (ICD-10-PCS; principal; 2023-03-13)
PROC: 3E033GC Introduction of Other Therapeutic Substance into Peripheral Vein, Percutaneous Approach (ICD-10-PCS; 2023-03-13)
DX: J45.901 Unspecified asthma with (acute) exacerbation (principal); G43.901 Migraine, unspecified, not intractable, with status migrainosus; R11.10 Vomiting, unspecified; Z20.822 Contact with and (suspected) exposure to COVID-19
CPT/HCPCS: 0241U-QW; 36415; 71045-TC-FY; 80053; 84484; 85027; 93005; 93010; 99285-25; J1100